=== PATIENT | male | born 1930 | race Caucasian/White ===

== ENCOUNTER 2018-10-17 19:08 | Inpatient (IN) ==
[2018-10-17] MEDS ORDERED: ALBUTEROL/IPRATROPIUM 3 ML NEB RESP TX STA (19:55)
[2018-10-17 20:35] LABS: Basophils % 0.2 % (0.0-0.8); Hematocrit 30.4 VOL% (42.0-52.0); Hemoglobin 9.9 GM/DL (14.0-18.0); Immature Granulocytes % 1.5 %; Immature Granulocytes Absolute 0.19 #; Lymphocytes # 1.1 10*3/uL (1.4-4.0); Lymphocytes % 8.2 % (21.2-54.2); Mean Corpuscular HGB Conc 32.6 GM/DL (32-36); Mean Corpuscular Volume 96.8 FL (87-102); Monocytes % 13.4 % (1.7-12.7); Neutrophils % 76.7 % (38.7-73.9); Platelet Count 218 T/CUMM (130-400); Red Blood Count 3.14 MC/CUMM (3.8-5.5); Red Cell Distribution Width 14.7 % (9.3-17.3)
[2018-10-17] MEDS ORDERED: VANCOMYCIN INJ 1,000 MG in SODIUM CHLORIDE 0.9% 250 ML IV STA (20:59)
[2018-10-17] MEDS ORDERED: MEROPENEM 1,000 MG in SODIUM CHLORIDE 0.9% 100 ML IV STA (21:00)
[2018-10-17] MEDS ORDERED: LACTATED RINGERS 250 ML IV ONE (21:00)
[2018-10-17 21:03] LABS: Alanine Aminotransferase 11 U/L (16-61); Albumin 1.9 G/DL (3.4-5.0); Alkaline Phosphatase 188 U/L (45-117); Aspartate Amino Transferase 28 U/L (0-37); Blood Urea Nitrogen 43 MG/DL (7-18); Calcium 9.1 MG/DL (8.5-10.1); Glucose 116 MG/DL (74-106); Osmolality,Calculated 286.7 MOS/KG (273-304); Total Protein 6.2 G/DL (6.4-8.3)
[2018-10-17 21:08] LABS: Band Neutrophils 4 % (0-10); Lymphocytes 9 % (20-55); Metamyelocytes 1 %; Promyelocytes 1 %; Segmented Neutrophils 77 % (50-85); Total Cells Counted 100
[2018-10-17 21:09] LABS: Burr Cells 2+; Polychromasia Few
[2018-10-17 21:10] LABS: Toxic Granulation 1+
[2018-10-17 21:11] LABS: Macrocytosis 1+; Ovalocytes Few; Platelet Estimate Normal
[2018-10-17 21:12] LABS: Anisocytosis Slight; Hypochromasia Slight
[2018-10-17] MEDS ORDERED: LACTATED RINGERS 1,000 ML IV ONE (21:13)
[2018-10-18] MEDS ORDERED: ONDANSETRON 4 MG/2 ML VIAL IV PRN (01:15)
[2018-10-18] MEDS ORDERED: ALBUTEROL 2.5 MG/3 ML NEB RESP TX PRN (01:15)
[2018-10-18] MEDS: ALBUTEROL/IPRATROPIUM 3 ML NEB RESP TX SCH ×4 (01:52→19:40)
[2018-10-18] MEDS: SODIUM CHLORIDE 0.9% 1,000 ML IV SCH ×3 (02:00→18:46)
[2018-10-18] MEDS: guaiFENesin/DM ER 600-30 MG TABLET PO SCH ×3 (02:08→20:51)
[2018-10-18 02:16] LABS: Calcium 8.7 MG/DL (8.5-10.1); Osmolality,Calculated 282.8 MOS/KG (273-304)
[2018-10-18 02:39] LABS: Basophils # 0.1 10*3/uL (0.0-0.2); Basophils % 0.3 % (0.0-0.8); Hematocrit 31.2 VOL% (42.0-52.0); Hemoglobin 10.3 GM/DL (14.0-18.0); Immature Granulocytes % 0.8 %; Immature Granulocytes Absolute 0.12 #; Lymphocytes # 1.8 10*3/uL (1.4-4.0); Lymphocytes % 11.7 % (21.2-54.2); Mean Corpuscular Volume 98.4 FL (87-102); Mean Platelet Volume 10.9 FL (9.6-12.0); Monocytes % 14.1 % (1.7-12.7); Neutrophils % 73.1 % (38.7-73.9); Platelet Count 209 T/CUMM (130-400); Red Blood Count 3.17 MC/CUMM (3.8-5.5); Red Cell Distribution Width 14.8 % (9.3-17.3); White Blood Count 15.1 T/CUMM (4-12)
[2018-10-18 05:50] LABS: Amorphous Crystals,Urine Few /HPF (Few); Apearance,Urine Slightly Hazy (Clear); Bilirubin,Urine Negative (Negative); Blood, Urine Negative (Negative); Glucose,Urine (UA) Negative (Negative); Ketones,Urine Negative (Negative); Mucus,Urine Occasional /LPF (Occasional); Nitrite,Urine Negative (Negative); Protein,Urine Negative; RBC,Urine 1 /HPF (0-4); Urine Color Yellow (Yellow); Urine Specific Gravity 1.015 (1.001-1.035); Urine Urobilinogen < 2.0 EU/DL (0.2-1.0); WBC,Urine 1 /HPF (0-6)
[2018-10-18] MEDS: VANCOMYCIN 50 MG/ML 60 ML/BOTTLE PO SCH ×4 (07:10→20:50)
[2018-10-18] MEDS: MEROPENEM 1,000 MG in SODIUM CHLORIDE 0.9% 100 ML IV SCH ×2 (09:04→20:51)
[2018-10-18] MEDS: ACETAMINOPHEN 325 MG TABLET PO PRN ×2 (09:12→17:45)
[2018-10-18] MEDS ORDERED: SODIUM CHLORIDE 0.9% 1,000 ML IV ONE (11:15)
[2018-10-19] MEDS: ALBUTEROL/IPRATROPIUM 3 ML NEB RESP TX SCH ×4 (00:04→19:14)
[2018-10-19] MEDS: VANCOMYCIN 50 MG/ML 60 ML/BOTTLE PO SCH ×4 (01:32→21:03)
[2018-10-19] MEDS: SODIUM CHLORIDE 0.9% 1,000 ML IV SCH ×3 (01:37→17:38)
[2018-10-19 06:10] LABS: Calcium 8.5 MG/DL (8.5-10.1); Osmolality,Calculated 292.8 MOS/KG (273-304)
[2018-10-19 06:19] LABS: Basophils % 0.1 % (0.0-0.8); Eosinophils % 0.3 % (0.00-10.9); Hematocrit 30.7 VOL% (42.0-52.0); Hemoglobin 9.9 GM/DL (14.0-18.0); Immature Granulocytes Absolute 0.14 #; Lymphocytes # 1.2 10*3/uL (1.4-4.0); Lymphocytes % 8.1 % (21.2-54.2); Mean Corpuscular HGB Conc 32.2 GM/DL (32-36); Mean Corpuscular Volume 98.1 FL (87-102); Mean Platelet Volume 11.4 FL (9.6-12.0); Monocytes % 11.5 % (1.7-12.7); Platelet Count 170 T/CUMM (130-400); Red Blood Count 3.13 MC/CUMM (3.8-5.5); White Blood Count 14.2 T/CUMM (4-12)
[2018-10-19] MEDS ORDERED: VANCOMYCIN INJ 1,000 MG in SODIUM CHLORIDE 0.9% 250 ML IV SCH (08:00)
[2018-10-19] MEDS: MEROPENEM 1,000 MG in SODIUM CHLORIDE 0.9% 100 ML IV SCH ×2 (09:24→21:01)
[2018-10-19] MEDS: VANCOMYCIN INJ 1,000 MG in SODIUM CHLORIDE 0.9% 250 ML IV SCH (09:24)
[2018-10-19] MEDS ORDERED: FUROSEMIDE 20 MG/2 ML VIAL IV ONE (09:25)
[2018-10-19] MEDS: guaiFENesin/DM ER 600-30 MG TABLET PO SCH ×2 (09:25→21:00)
[2018-10-19] MEDS: FAMOTIDINE 20 MG TABLET PO SCH (09:41)
[2018-10-19] MEDS: SPIRONOLACTONE 25 MG TABLET PO SCH (09:41)
[2018-10-19] MEDS: TAMSULOSIN 0.4 MG CAPSULE PO SCH (09:41)
[2018-10-19] MEDS: DORNASE ALFA 2.5 MG/2.5 ML VIAL RESP TX SCH ×2 (12:12→19:14)
[2018-10-19] MEDS: MAGNESIUM OXIDE 400 MG TABLET PO SCH (21:00)
[2018-10-19] MEDS: ATORVASTATIN 80 MG TABLET PO SCH (21:00)
[2018-10-19] MEDS: MIRTAZAPINE 15 MG TABLET PO SCH (21:00)
[2018-10-20] MEDS: ALBUTEROL/IPRATROPIUM 3 ML NEB RESP TX SCH ×4 (01:08→18:56)
[2018-10-20] MEDS: VANCOMYCIN 50 MG/ML 60 ML/BOTTLE PO SCH ×4 (02:08→20:49)
[2018-10-20] MEDS: SODIUM CHLORIDE 0.9% 1,000 ML IV SCH ×3 (02:22→20:49)
[2018-10-20 04:44] LABS: Basophils % 0.2 % (0.0-0.8); Eosinophils # 0.1 10*3/uL (0.0-0.87); Eosinophils % 0.8 % (0.00-10.9); Hematocrit 26.2 VOL% (42.0-52.0); Hemoglobin 8.6 GM/DL (14.0-18.0); Immature Granulocytes % 2.1 %; Immature Granulocytes Absolute 0.31 #; Lymphocytes # 1.8 10*3/uL (1.4-4.0); Lymphocytes % 12.5 % (21.2-54.2); Mean Corpuscular HGB Conc 32.8 GM/DL (32-36); Mean Platelet Volume 10.2 FL (9.6-12.0); Monocytes % 10.9 % (1.7-12.7); Neutrophils % 73.5 % (38.7-73.9); Platelet Count 239 T/CUMM (130-400); Red Blood Count 2.73 MC/CUMM (3.8-5.5); Red Cell Distribution Width 14.9 % (9.3-17.3); White Blood Count 14.7 T/CUMM (4-12)
[2018-10-20 05:08] LABS: Band Neutrophils 2 % (0-10); Eosinophils 1 % (0-10); Hypochromasia 2+; Lymphocytes 6 % (20-55); Platelet Estimate Adequate; Segmented Neutrophils 83 % (50-85); Total Cells Counted 100
[2018-10-20 05:40] LABS: Calcium 8.6 MG/DL (8.5-10.1); Osmolality,Calculated 292.8 MOS/KG (273-304)
[2018-10-20] MEDS: DORNASE ALFA 2.5 MG/2.5 ML VIAL RESP TX SCH ×2 (07:33→19:04)
[2018-10-20] MEDS: VANCOMYCIN INJ 1,000 MG in SODIUM CHLORIDE 0.9% 250 ML IV SCH (09:05)
[2018-10-20] MEDS: FAMOTIDINE 20 MG TABLET PO SCH (09:06)
[2018-10-20] MEDS: SPIRONOLACTONE 25 MG TABLET PO SCH (09:06)
[2018-10-20] MEDS: MAGNESIUM OXIDE 400 MG TABLET PO SCH ×2 (09:06→20:47)
[2018-10-20] MEDS: guaiFENesin/DM ER 600-30 MG TABLET PO SCH ×2 (09:06→20:48)
[2018-10-20] MEDS: TAMSULOSIN 0.4 MG CAPSULE PO SCH (09:06)
[2018-10-20] MEDS: MEROPENEM 1,000 MG in SODIUM CHLORIDE 0.9% 100 ML IV SCH ×2 (10:10→20:47)
[2018-10-20] MEDS ORDERED: POTASSIUM CHLORIDE 20 MEQ TABLET PO PRN (11:06)
[2018-10-20] MEDS: MIRTAZAPINE 15 MG TABLET PO SCH (20:47)
[2018-10-20] MEDS: ATORVASTATIN 80 MG TABLET PO SCH (20:47)
[2018-10-21] MEDS: ALBUTEROL/IPRATROPIUM 3 ML NEB RESP TX SCH ×4 (00:26→18:52)
[2018-10-21] MEDS: VANCOMYCIN 50 MG/ML 60 ML/BOTTLE PO SCH ×4 (03:06→22:27)
[2018-10-21] MEDS: DORNASE ALFA 2.5 MG/2.5 ML VIAL RESP TX SCH ×2 (07:52→18:52)
[2018-10-21] MEDS: FAMOTIDINE 20 MG TABLET PO SCH (09:27)
[2018-10-21] MEDS: MEROPENEM 1,000 MG in SODIUM CHLORIDE 0.9% 100 ML IV SCH ×2 (09:27→22:26)
[2018-10-21] MEDS: SODIUM CHLORIDE 0.9% 1,000 ML IV SCH ×3 (09:28→16:27)
[2018-10-21] MEDS: SPIRONOLACTONE 25 MG TABLET PO SCH (09:28)
[2018-10-21] MEDS: guaiFENesin/DM ER 600-30 MG TABLET PO SCH ×2 (09:28→22:26)
[2018-10-21] MEDS: MAGNESIUM OXIDE 400 MG TABLET PO SCH ×2 (09:28→22:26)
[2018-10-21] MEDS: TAMSULOSIN 0.4 MG CAPSULE PO SCH (09:28)
[2018-10-21] MEDS: VANCOMYCIN INJ 1,000 MG in SODIUM CHLORIDE 0.9% 250 ML IV SCH (10:09)
[2018-10-21] MEDS: MEGESTROL ES 125 MG/ML 30 ML/BOTTLE PO SCH (14:55)
[2018-10-21] MEDS: ATORVASTATIN 80 MG TABLET PO SCH (22:26)
[2018-10-22] MEDS: ALBUTEROL/IPRATROPIUM 3 ML NEB RESP TX SCH ×4 (00:33→20:14)
[2018-10-22] MEDS: VANCOMYCIN 50 MG/ML 60 ML/BOTTLE PO SCH ×4 (02:38→21:04)
[2018-10-22 05:21] LABS: Basophils % 0.2 % (0.0-0.8); Eosinophils % 0.3 % (0.00-10.9); Hemoglobin 7.8 GM/DL (14.0-18.0); Immature Granulocytes % 2.8 %; Lymphocytes # 1.6 10*3/uL (1.4-4.0); Lymphocytes % 11.3 % (21.2-54.2); Mean Corpuscular HGB Conc 32.5 GM/DL (32-36); Mean Corpuscular Volume 97.2 FL (87-102); Mean Platelet Volume 10.3 FL (9.6-12.0); Monocytes % 10.1 % (1.7-12.7); Neutrophils % 75.3 % (38.7-73.9); Platelet Count 239 T/CUMM (130-400); Red Blood Count 2.47 MC/CUMM (3.8-5.5); Red Cell Distribution Width 15.3 % (9.3-17.3); White Blood Count 14.1 T/CUMM (4-12)
[2018-10-22 05:56] LABS: Calcium 8.4 MG/DL (8.5-10.1); Osmolality,Calculated 302.9 MOS/KG (273-304)
[2018-10-22] MEDS: VANCOMYCIN INJ 1,250 MG in SODIUM CHLORIDE 0.9% 250 ML IV SCH (06:12)
[2018-10-22] MEDS: SODIUM CHLORIDE 0.9% 1,000 ML IV SCH ×2 (06:16→21:05)
[2018-10-22] MEDS: DORNASE ALFA 2.5 MG/2.5 ML VIAL RESP TX SCH ×2 (07:55→20:14)
[2018-10-22] MEDS: MEGESTROL ES 125 MG/ML 30 ML/BOTTLE PO SCH (09:17)
[2018-10-22] MEDS: MEROPENEM 1,000 MG in SODIUM CHLORIDE 0.9% 100 ML IV SCH ×2 (09:18→21:01)
[2018-10-22] MEDS: SPIRONOLACTONE 25 MG TABLET PO SCH (09:18)
[2018-10-22] MEDS: FAMOTIDINE 20 MG TABLET PO SCH (09:18)
[2018-10-22] MEDS: MAGNESIUM OXIDE 400 MG TABLET PO SCH ×2 (09:18→21:03)
[2018-10-22] MEDS: TAMSULOSIN 0.4 MG CAPSULE PO SCH (09:18)
[2018-10-22] MEDS: guaiFENesin/DM ER 600-30 MG TABLET PO SCH ×2 (09:18→21:03)
[2018-10-22] MEDS: ATORVASTATIN 80 MG TABLET PO SCH (21:03)
[2018-10-23] MEDS: ALBUTEROL/IPRATROPIUM 3 ML NEB RESP TX SCH ×4 (00:24→19:11)
[2018-10-23] MEDS: VANCOMYCIN 50 MG/ML 60 ML/BOTTLE PO SCH ×4 (01:52→21:55)
[2018-10-23] MEDS: VANCOMYCIN INJ 1,250 MG in SODIUM CHLORIDE 0.9% 250 ML IV SCH (06:52)
[2018-10-23] MEDS: DORNASE ALFA 2.5 MG/2.5 ML VIAL RESP TX SCH ×2 (07:43→19:11)
[2018-10-23] MEDS: MEGESTROL ES 125 MG/ML 30 ML/BOTTLE PO SCH (09:01)
[2018-10-23] MEDS: SPIRONOLACTONE 25 MG TABLET PO SCH (09:02)
[2018-10-23] MEDS: FAMOTIDINE 20 MG TABLET PO SCH (09:02)
[2018-10-23] MEDS: guaiFENesin/DM ER 600-30 MG TABLET PO SCH ×2 (09:02→21:56)
[2018-10-23] MEDS: MAGNESIUM OXIDE 400 MG TABLET PO SCH ×2 (09:02→21:57)
[2018-10-23] MEDS: TAMSULOSIN 0.4 MG CAPSULE PO SCH (09:02)
[2018-10-23] MEDS: MEROPENEM 1,000 MG in SODIUM CHLORIDE 0.9% 100 ML IV SCH ×2 (09:02→22:04)
[2018-10-23] MEDS: SODIUM CHLORIDE 0.9% 1,000 ML IV SCH (09:10)
[2018-10-23] MEDS ORDERED: SODIUM CHLORIDE 0.9% 1,000 ML IV PRN (10:28)
[2018-10-23] MEDS ORDERED: DEXTROSE 5% 1,000 ML IV SCH (10:30)
[2018-10-23] MEDS: DEXTROSE 5% 1,000 ML IV SCH (15:01)
[2018-10-23] MEDS: ATENOLOL 50 MG TABLET PO SCH (19:15)
[2018-10-23] MEDS: ATORVASTATIN 80 MG TABLET PO SCH (21:56)
[2018-10-24] MEDS: ALBUTEROL/IPRATROPIUM 3 ML NEB RESP TX SCH ×4 (00:50→19:58)
[2018-10-24] MEDS: VANCOMYCIN 50 MG/ML 60 ML/BOTTLE PO SCH ×4 (01:50→21:09)
[2018-10-24 05:03] LABS: Basophils # 0.1 10*3/uL (0.0-0.2); Basophils % 0.3 % (0.0-0.8); Hematocrit 34.9 VOL% (42.0-52.0); Hemoglobin 11.6 GM/DL (14.0-18.0); Immature Granulocytes % 2.8 %; Immature Granulocytes Absolute 0.57 #; Lymphocytes # 1.2 10*3/uL (1.4-4.0); Lymphocytes % 5.7 % (21.2-54.2); Mean Corpuscular HGB Conc 33.2 GM/DL (32-36); Mean Corpuscular Volume 94.3 FL (87-102); Mean Platelet Volume 10.1 FL (9.6-12.0); NRBC # 0.05 10*3/uL; Neutrophils % 85.2 % (38.7-73.9); Platelet Count 334 T/CUMM (130-400); Red Cell Distribution Width 17.5 % (9.3-17.3); White Blood Count 20.7 T/CUMM (4-12)
[2018-10-24 05:39] LABS: Band Neutrophils 5 % (0-10); Lymphocytes 6 % (20-55); Nucleated Red Blood Cells 1 (0-5); Segmented Neutrophils 84 % (50-85); Total Cells Counted 100
[2018-10-24 05:40] LABS: Hypochromasia Slight
[2018-10-24 05:41] LABS: Anisocytosis 1+; Microcytosis 1+; Platelet Estimate Normal
[2018-10-24 05:58] LABS: Calcium 9.1 MG/DL (8.5-10.1); Osmolality,Calculated 308.6 MOS/KG (273-304)
[2018-10-24] MEDS: VANCOMYCIN INJ 1,250 MG in SODIUM CHLORIDE 0.9% 250 ML IV SCH (06:14)
[2018-10-24] MEDS: DEXTROSE 5% 1,000 ML IV SCH ×2 (06:31→18:27)
[2018-10-24] MEDS: DORNASE ALFA 2.5 MG/2.5 ML VIAL RESP TX SCH ×2 (07:36→19:58)
[2018-10-24] MEDS: FAMOTIDINE 20 MG TABLET PO SCH (08:38)
[2018-10-24] MEDS: SPIRONOLACTONE 25 MG TABLET PO SCH (08:38)
[2018-10-24] MEDS: ATENOLOL 50 MG TABLET PO SCH (08:38)
[2018-10-24] MEDS: MEGESTROL ES 125 MG/ML 30 ML/BOTTLE PO SCH (08:38)
[2018-10-24] MEDS: guaiFENesin/DM ER 600-30 MG TABLET PO SCH ×2 (08:38→21:08)
[2018-10-24] MEDS: TAMSULOSIN 0.4 MG CAPSULE PO SCH (08:38)
[2018-10-24] MEDS: MAGNESIUM OXIDE 400 MG TABLET PO SCH ×2 (08:38→21:08)
[2018-10-24] MEDS: MEROPENEM 1,000 MG in SODIUM CHLORIDE 0.9% 100 ML IV SCH ×2 (08:43→21:08)
[2018-10-24] MEDS ORDERED: DEXTROSE 5% 1,000 ML IV SCH (14:00)
[2018-10-24] MEDS ORDERED: DEXTROSE 50% 25 GM/50 ML VIAL IV PRN (15:01)
[2018-10-24] MEDS: TRACE ELEMENTS (5) 1 ML, MULTIVITAMIN INJ 10 ML in AMINO ACIDS/DEXT/LYTES 4.25-5% 2,000 ML IV SCH (18:28)
[2018-10-24] MEDS: ATORVASTATIN 80 MG TABLET PO SCH (21:08)
[2018-10-25] MEDS: ALBUTEROL/IPRATROPIUM 3 ML NEB RESP TX SCH ×4 (00:36→19:34)
[2018-10-25] MEDS: VANCOMYCIN 50 MG/ML 60 ML/BOTTLE PO SCH ×4 (01:13→20:00)
[2018-10-25 05:25] LABS: Osmolality,Calculated 308.7 MOS/KG (273-304)
[2018-10-25] MEDS: DEXTROSE 5% 1,000 ML IV SCH ×3 (05:29→18:19)
[2018-10-25] MEDS: VANCOMYCIN INJ 1,250 MG in SODIUM CHLORIDE 0.9% 250 ML IV SCH (06:15)
[2018-10-25 06:37] LABS: Calcium 8.9 MG/DL (8.5-10.1); Osmolality,Calculated 303.1 MOS/KG (273-304)
[2018-10-25] MEDS: DORNASE ALFA 2.5 MG/2.5 ML VIAL RESP TX SCH ×2 (07:22→19:34)
[2018-10-25] MEDS: TAMSULOSIN 0.4 MG CAPSULE PO SCH (08:47)
[2018-10-25] MEDS: MAGNESIUM OXIDE 400 MG TABLET PO SCH ×2 (08:48→23:01)
[2018-10-25] MEDS: FAMOTIDINE 20 MG TABLET PO SCH (08:48)
[2018-10-25] MEDS: guaiFENesin/DM ER 600-30 MG TABLET PO SCH ×2 (08:48→23:01)
[2018-10-25] MEDS: SPIRONOLACTONE 25 MG TABLET PO SCH (08:48)
[2018-10-25] MEDS: ATENOLOL 50 MG TABLET PO SCH (08:48)
[2018-10-25] MEDS: MEROPENEM 1,000 MG in SODIUM CHLORIDE 0.9% 100 ML IV SCH ×2 (10:25→22:59)
[2018-10-25] MEDS: MEGESTROL ES 125 MG/ML 30 ML/BOTTLE PO SCH (11:26)
[2018-10-25] MEDS: TRACE ELEMENTS (5) 1 ML, MULTIVITAMIN INJ 10 ML in AMINO ACIDS/DEXT/LYTES 4.25-5% 2,000 ML IV SCH (17:15)
[2018-10-25] MEDS: LINEZOLID INJ 600 MG in PREMIX 1 EACH IV SCH (18:18)
[2018-10-25] MEDS: ATORVASTATIN 80 MG TABLET PO SCH (23:01)
[2018-10-26] MEDS: ALBUTEROL/IPRATROPIUM 3 ML NEB RESP TX SCH ×4 (01:01→19:42)
[2018-10-26] MEDS: VANCOMYCIN 50 MG/ML 60 ML/BOTTLE PO SCH ×4 (02:00→23:05)
[2018-10-26] MEDS: DEXTROSE 5% 1,000 ML IV SCH ×2 (05:52→12:22)
[2018-10-26] MEDS: LINEZOLID INJ 600 MG in PREMIX 1 EACH IV SCH ×2 (05:53→17:16)
[2018-10-26 06:53] LABS: Prealbumin 5.9 MG/DL (20-40)
[2018-10-26 06:57] LABS: Calcium 8.8 MG/DL (8.5-10.1); Osmolality,Calculated 295.7 MOS/KG (273-304)
[2018-10-26] MEDS: DORNASE ALFA 2.5 MG/2.5 ML VIAL RESP TX SCH ×2 (08:02→19:42)
[2018-10-26] MEDS: SPIRONOLACTONE 25 MG TABLET PO SCH (12:22)
[2018-10-26] MEDS: TAMSULOSIN 0.4 MG CAPSULE PO SCH (12:22)
[2018-10-26] MEDS: guaiFENesin/DM ER 600-30 MG TABLET PO SCH ×2 (12:22→21:09)
[2018-10-26] MEDS: MEGESTROL ES 125 MG/ML 30 ML/BOTTLE PO SCH (12:22)
[2018-10-26] MEDS: FAMOTIDINE 20 MG TABLET PO SCH (12:22)
[2018-10-26] MEDS: ATENOLOL 50 MG TABLET PO SCH (12:22)
[2018-10-26] MEDS: MAGNESIUM OXIDE 400 MG TABLET PO SCH ×2 (12:22→21:09)
[2018-10-26] MEDS: FAT EMULSION 20% 250 ML IV SCH (13:40)
[2018-10-26] MEDS: TRACE ELEMENTS (5) 1 ML, MULTIVITAMIN INJ 10 ML in AMINO ACIDS/DEXT/LYTES 4.25-5% 2,000 ML IV SCH (16:02)
[2018-10-26] MEDS: ATORVASTATIN 80 MG TABLET PO SCH (21:09)
[2018-10-27] MEDS: ALBUTEROL/IPRATROPIUM 3 ML NEB RESP TX SCH ×4 (00:18→18:40)
[2018-10-27] MEDS: VANCOMYCIN 50 MG/ML 60 ML/BOTTLE PO SCH ×4 (01:30→20:28)
[2018-10-27 05:08] LABS: Basophils % 0.2 % (0.0-0.8); Eosinophils # 0.2 10*3/uL (0.0-0.87); Eosinophils % 1.1 % (0.00-10.9); Hematocrit 35.4 VOL% (42.0-52.0); Hemoglobin 11.4 GM/DL (14.0-18.0); Immature Granulocytes % 1.5 %; Immature Granulocytes Absolute 0.28 #; Lymphocytes # 1.5 10*3/uL (1.4-4.0); Lymphocytes % 8.4 % (21.2-54.2); Mean Corpuscular HGB Conc 32.2 GM/DL (32-36); Mean Corpuscular Volume 95.4 FL (87-102); Mean Platelet Volume 10.5 FL (9.6-12.0); Monocytes % 5.8 % (1.7-12.7); NRBC # 0.02 10*3/uL; Platelet Count 289 T/CUMM (130-400); Red Blood Count 3.71 MC/CUMM (3.8-5.5); Red Cell Distribution Width 16.8 % (9.3-17.3); White Blood Count 18.1 T/CUMM (4-12)
[2018-10-27 05:40] LABS: Calcium 8.7 MG/DL (8.5-10.1); Osmolality,Calculated 292.8 MOS/KG (273-304)
[2018-10-27] MEDS: DORNASE ALFA 2.5 MG/2.5 ML VIAL RESP TX SCH ×2 (07:37→18:40)
[2018-10-27] MEDS: LINEZOLID INJ 600 MG in PREMIX 1 EACH IV SCH ×2 (09:22→17:39)
[2018-10-27] MEDS: SPIRONOLACTONE 25 MG TABLET PO SCH (12:32)
[2018-10-27] MEDS: TAMSULOSIN 0.4 MG CAPSULE PO SCH (12:32)
[2018-10-27] MEDS: MEGESTROL ES 125 MG/ML 30 ML/BOTTLE PO SCH (12:33)
[2018-10-27] MEDS: MAGNESIUM OXIDE 400 MG TABLET PO SCH ×2 (12:33→20:29)
[2018-10-27] MEDS: FAMOTIDINE 20 MG TABLET PO SCH (12:34)
[2018-10-27] MEDS: guaiFENesin/DM ER 600-30 MG TABLET PO SCH ×2 (12:34→20:28)
[2018-10-27] MEDS: ATENOLOL 50 MG TABLET PO SCH (12:34)
[2018-10-27] MEDS: FAT EMULSION 20% 250 ML IV SCH (14:38)
[2018-10-27] MEDS: ATORVASTATIN 80 MG TABLET PO SCH (20:28)
[2018-10-28] MEDS: ALBUTEROL/IPRATROPIUM 3 ML NEB RESP TX SCH ×4 (00:30→20:45)
[2018-10-28] MEDS: TRACE ELEMENTS (5) 1 ML, MULTIVITAMIN INJ 10 ML in AMINO ACIDS/DEXT/LYTES 4.25-5% 2,000 ML IV SCH ×2 (01:12→17:37)
[2018-10-28] MEDS: VANCOMYCIN 50 MG/ML 60 ML/BOTTLE PO SCH ×4 (01:14→20:08)
[2018-10-28 05:29] LABS: Basophils # 0.1 10*3/uL (0.0-0.2); Basophils % 0.3 % (0.0-0.8); Eosinophils # 0.3 10*3/uL (0.0-0.87); Eosinophils % 1.6 % (0.00-10.9); Hemoglobin 10.3 GM/DL (14.0-18.0); Immature Granulocytes % 1.6 %; Immature Granulocytes Absolute 0.29 #; Lymphocytes # 1.9 10*3/uL (1.4-4.0); Lymphocytes % 10.4 % (21.2-54.2); Mean Corpuscular HGB Conc 32.2 GM/DL (32-36); Mean Corpuscular Volume 95.8 FL (87-102); Mean Platelet Volume 10.5 FL (9.6-12.0); Monocytes % 6.4 % (1.7-12.7); Neutrophils % 79.7 % (38.7-73.9); Platelet Count 275 T/CUMM (130-400); Red Blood Count 3.34 MC/CUMM (3.8-5.5); Red Cell Distribution Width 16.8 % (9.3-17.3); White Blood Count 17.8 T/CUMM (4-12)
[2018-10-28] MEDS: LINEZOLID INJ 600 MG in PREMIX 1 EACH IV SCH ×2 (05:53→17:38)
[2018-10-28] MEDS: DORNASE ALFA 2.5 MG/2.5 ML VIAL RESP TX SCH ×2 (07:42→20:45)
[2018-10-28] MEDS: MEGESTROL ES 125 MG/ML 30 ML/BOTTLE PO SCH (09:51)
[2018-10-28] MEDS: MAGNESIUM OXIDE 400 MG TABLET PO SCH ×2 (09:53→20:08)
[2018-10-28] MEDS: SPIRONOLACTONE 25 MG TABLET PO SCH (09:53)
[2018-10-28] MEDS: TAMSULOSIN 0.4 MG CAPSULE PO SCH (09:53)
[2018-10-28] MEDS: guaiFENesin/DM ER 600-30 MG TABLET PO SCH ×2 (09:54→20:08)
[2018-10-28] MEDS: FAMOTIDINE 20 MG TABLET PO SCH (09:54)
[2018-10-28] MEDS: ATENOLOL 50 MG TABLET PO SCH (09:54)
[2018-10-28] MEDS: FAT EMULSION 20% 250 ML IV SCH (16:01)
[2018-10-28] MEDS: ATORVASTATIN 80 MG TABLET PO SCH (20:08)
[2018-10-29] MEDS: ALBUTEROL/IPRATROPIUM 3 ML NEB RESP TX SCH ×3 (00:39→13:24)
[2018-10-29] MEDS: VANCOMYCIN 50 MG/ML 60 ML/BOTTLE PO SCH ×3 (01:26→17:07)
[2018-10-29 05:23] LABS: Basophils # 0.1 10*3/uL (0.0-0.2); Basophils % 0.3 % (0.0-0.8); Eosinophils # 0.2 10*3/uL (0.0-0.87); Eosinophils % 1.3 % (0.00-10.9); Hematocrit 33.6 VOL% (42.0-52.0); Immature Granulocytes % 1.5 %; Immature Granulocytes Absolute 0.26 #; Lymphocytes # 1.3 10*3/uL (1.4-4.0); Lymphocytes % 7.1 % (21.2-54.2); Mean Corpuscular HGB Conc 32.7 GM/DL (32-36); Mean Platelet Volume 10.2 FL (9.6-12.0); Monocytes % 4.9 % (1.7-12.7); Neutrophils % 84.9 % (38.7-73.9); Platelet Count 275 T/CUMM (130-400); Red Cell Distribution Width 16.9 % (9.3-17.3); White Blood Count 17.5 T/CUMM (4-12)
[2018-10-29 05:43] LABS: Calcium 8.8 MG/DL (8.5-10.1); Osmolality,Calculated 282.5 MOS/KG (273-304)
[2018-10-29] MEDS: LINEZOLID INJ 600 MG in PREMIX 1 EACH IV SCH (05:43)
[2018-10-29] MEDS: DORNASE ALFA 2.5 MG/2.5 ML VIAL RESP TX SCH (07:44)
[2018-10-29] MEDS: MAGNESIUM OXIDE 400 MG TABLET PO SCH (11:15)
[2018-10-29] MEDS: guaiFENesin/DM ER 600-30 MG TABLET PO SCH (11:15)
[2018-10-29] MEDS: TAMSULOSIN 0.4 MG CAPSULE PO SCH (11:15)
[2018-10-29] MEDS: SPIRONOLACTONE 25 MG TABLET PO SCH (11:15)
[2018-10-29] MEDS: ATENOLOL 50 MG TABLET PO SCH (11:16)
[2018-10-29] MEDS: FAMOTIDINE 20 MG TABLET PO SCH (11:16)
[2018-10-29 15:39] VITALS: BP 160/58
[2018-10-29] MEDS: MEGESTROL ES 125 MG/ML 30 ML/BOTTLE PO SCH (17:07)
[2018-10-29] MEDS ORDERED: DESITIN 4OZ/NYSTATIN 15 GRAM MIXTURE PASTE TOP SCH (21:00)
== END 2018-10-29 16:16 | disposition hospice, home (50) | DRG 871 ==
LOC: EDBD → EDUNIT# → N.ED 19:08 → N.EDINP 22:36 → SUATTDRO 22:36 → N.ICU 10-18 01:04 → N.3E 10-19 12:08 → N.5E 10-19 16:30
PROVIDERS: ADMIT Family Medicine; ATTEND Internal Medicine